=== PATIENT | female | born 1975 | race American Indian/Alaskan Native ===

== ENCOUNTER 2017-04-25 06:52 | Emergency (ER) | payer MEDICARE, MEDICAID ==
[2017-04-25 06:53] VITALS: BMI 74.9
[2017-04-25 07:06] VITALS: RESP 16
[2017-04-25 08:05] LABS: BASO # 0.1 K/uL (0.0-0.2); BASO % 0.9 % (0.0-2.0); EOS # 0.3 K/uL (0.0-0.7); EOS % 3.2 % (0.0-4.0); HEMATOCRIT 34.4 % (34.0-47.0); LYMPH # 1.6 K/uL (1.0-4.3); LYMPH % 16.8 % (20.0-40.0); MEAN CELL VOLUME 81.6 fL (81.0-99.0); MEAN CORPUSCULAR HEMOGLOBIN 26.6 pg (27.0-31.0); MEAN CORPUSCULAR HGB CONC 32.6 g/dL (33.0-37.0); MEAN PLATELET VOLUME 8.8 fL (7.2-11.7); MONO # 0.7 K/uL (0.0-0.8); MONO % 7.6 % (0.0-10.0); NRBC % 0.3 % (0.0-2.0); RED CELL DISTRIBUTION WIDTH 19.8 % (11.5-14.5); WHITE BLOOD COUNT 9.5 K/uL (4.8-10.8)
[2017-04-25 08:15] LABS: CHLORIDE 101 mmol/L (98-107); SODIUM 136 mmol/L (132-148)
[2017-04-25 08:17] LABS: AST/SGOT 29 U/L (14-36); BILIRUBIN,TOTAL 0.8 mg/dL (0.2-1.3); CARBON DIOXIDE 26 mmol/L (22-30); GFR AFRICAN-AMERICAN > 60
[2017-04-25 08:18] LABS: ALB/GLOB RATIO 0.9 (1.0-2.1); ALKALINE PHOSPHATASE 68 U/L (38-126); ALT/SGPT 27 U/L (9-52); BLOOD UREA NITROGEN 17 mg/dL (7-17); CALCIUM 9.8 mg/dl (8.6-10.4); GLUCOSE,RANDOM 106 mg/dL (65-105); TOTAL PROTEIN 8.5 g/dL (6.3-8.3)
[2017-04-25 08:19] LABS: POTASSIUM 5.4 mmol/L (3.6-5.2)
[2017-04-25] MEDS ORDERED: Silver Sulfadiazine 1% Cream (20 gm) TOP SCH (10:30)
[2017-04-25] MEDS ORDERED: Silver Sulfadiazine 1% Cream (20 gm) ONE (10:32)
--- NOTE | 2017-04-25 10:35 | C.PDOC ---
History Of Present Illness 41 year old female, with PMHx of edema and diabetes, presents to ED for evaluation of wound to right lower leg for the past week. Patient states that wound was initially smaller but has now increased in size. Notes being seen at [facility] ER for similar reason. Denies increased blood sugar level, but patient does not check her sugar daily. Notes living in a alf. Denies trauma, injury, fever, change in sensation, or increased swelling. Time Seen by Provider: 04/25/17 07:14 Chief Complaint (Nursing): Abnormal Skin Integrity History Per: Patient History/Exam Limitations: no limitations Onset/Duration Of Symptoms: Days (1 week) Current Symptoms Are (Timing): Still Present Location Of Injury: Right: Leg Quality Of Symptoms: Painful. denies: Draining Recent travel outside of the [place]: No Additional History Per: Patient Past Medical History Reviewed: Historical Data, Nursing Documentation, Vital Signs Vital Signs: Last Vital Signs Temp 98.9 F 04/25/17 11:04 Pulse 97 H 04/25/17 11:04 Resp 16 04/25/17 11:04 BP 138/79 04/25/17 11:04 Pulse Ox 97 04/25/17 12:26 - Medical History PMH: Diabetes, HTN, Hypercholesterolemia Family History: States: Diabetes - Social History Hx Alcohol Use: Yes Hx Substance Use: No Review Of Systems Except As Marked, All Systems Reviewed And Found Negative. Constitutional: Negative for: Fever, Chills Cardiovascular: Negative for: Chest Pain Respiratory: Negative for: Shortness of Breath Skin: Positive for: Other (wound to right lower leg) Neurological: Negative for: Weakness, Numbness Physical Exam - Physical Exam Appears: Non-toxic, No Acute Distress, Other (morbidly obese) Skin: Warm, Dry, Other (2 x 1cm area of ulceration to anterior right lower leg, no surrounding erythema or discharge) Head: Atraumatic, Normacephalic Eye(s): bilateral: Normal Inspection Nose: Normal Oral Mucosa: Moist Neck: Supple Chest: Symmetrical Cardiovascular: Rhythm Regular, No Murmur Respiratory: Normal Breath Sounds, No Rales, No Rhonchi, No Wheezing Gastrointestinal/Abdominal: Soft, No Tenderness Extremity: Normal ROM, Pedal Edema (bilateral legs), No Deformity Pulses: Left Dorsalis Pedis: Normal, Right Dorsalis Pedis: Normal Neurological/Psych: Oriented x3, Normal Speech, Normal Motor, Normal Sensation ED Course And Treatment - Laboratory Results Result Diagrams: 04/25/17 08:02 04/25/17 08:02 O2 Sat by Pulse Oximetry: 97 (RA) Pulse Ox Interpretation: Normal Progress Note: Spoke with podiatry resident who evaluated patient at bedside, preformed wound care, and instructed outpatient follow up. Patient is currently being managed by PMD and podiatry for chronic edema and wound care. Pt is being discharged home with instructions to follow up with medical billing and coding specialist in 1-2 days for further evaluation. Case discussed with Dr Pizano, agreed upon plan and discharge. Disposition - Disposition Disposition: HOME/ ROUTINE Disposition Time: 10:34 Condition: STABLE Additional Instructions: Follow up with your medical billing and coding specialist and PMD in 1-2 days. Return to ER if symptoms persist or worsen. Prescriptions: Silver [Silvasorb Antimicrobial Wound Gel] 1 applic TP BID 7 Days gel Instructions: Stasis Dermatitis (ED) Forms: [employer] (Israeli) - Clinical Impression Clinical Impression: Venous stasis ulcer - PA / COMPOUNDING TECHNICIAN / Resident Statement MD/DO has reviewed & agrees with the documentation as recorded. - Scribe Statement The provider has reviewed the documentation as recorded by the Jiaibgreg Valdez All medical record entries made by the Jiaibgreg were at my direction and personally dictated by me. I have reviewed the chart and agree that the record accurately reflects my personal performance of the history, physical exam, medical decision making, and the department course for this patient. I have also personally directed, reviewed, and agree with the discharge instructions and disposition.
[2017-04-25 11:06] VITALS: BP 138/79; PULSE 97; TEMP 98.9
[2017-04-25 11:21] VITALS: O2SAT 97
== END 2017-04-25 11:21 | disposition home or self-care (01) ==
LOC: C.ER 06:52
DX: I87.8 Other specified disorders of veins (principal); L97.819 Non-pressure chronic ulcer of other part of right lower leg with unspecified severity

== ENCOUNTER 2017-07-27 21:13 | Emergency (ER) | payer MEDICARE, MEDICAID ==
[2017-07-27 21:13] VITALS: BMI 74.9
--- NOTE | 2017-07-27 21:59 | C.PDOC ---
History Of Present Illness 41-year-old female, presents to the emergency department complaining of chronic lower extremity wound that she has had for about three months. Patient states it is painful and has not healed. She was seen by wound care nurse 06/19 at [facility], treated with medi-honey, but after that she was not told to follow-up anywhere and it is not getting better. Denies fever, drainage or any other associated symptoms. No other complaints at this time. Time Seen by Provider: 07/27/17 21:35 Chief Complaint (Nursing): Abnormal Skin Integrity History Per: Patient History/Exam Limitations: no limitations Onset/Duration Of Symptoms: Days Current Symptoms Are (Timing): Still Present Past Medical History Reviewed: Historical Data, Nursing Documentation, Vital Signs Vital Signs: Last Vital Signs Temp 98.7 F 07/27/17 21:22 Pulse 102 H 07/27/17 21:22 Resp 28 H 07/27/17 21:22 BP 136/95 H 07/27/17 21:22 Pulse Ox 97 07/27/17 21:22 - Medical History PMH: Anemia, Diabetes, HTN, Hypercholesterolemia Family History: States: Diabetes - Social History Hx Alcohol Use: No Hx Substance Use: No Review Of Systems Except As Marked, All Systems Reviewed And Found Negative. Constitutional: Negative for: Fever, Chills Respiratory: Negative for: Shortness of Breath Gastrointestinal: Negative for: Nausea, Vomiting Musculoskeletal: Positive for: Leg Pain Neurological: Negative for: Weakness, Numbness, Headache, Dizziness Physical Exam - Physical Exam Appears: Non-toxic, No Acute Distress Skin: Warm, Dry, No Rash Head: Atraumatic, Normacephalic Eye(s): bilateral: Normal Inspection, PERRL Nose: Normal Oral Mucosa: Moist Lips: Normal Appearing Neck: Normal ROM Cardiovascular: Rhythm Regular, No Murmur Respiratory: Normal Breath Sounds, No Accessory Muscle Use Extremity: Capillary Refill (<2 seconds), No Deformity, Other (right way: 3- 4cm shallow ulcerated wound. No erythema or discharge, surrounded by dry scaly skin.) Pulses: Left Dorsalis Pedis: Normal, Right Dorsalis Pedis: Normal Neurological/Psych: Oriented x3, Normal Speech ED Course And Treatment Progress Note: Accucheck is 93 Disposition Counseled Patient/Family Regarding: Studies Performed, Diagnosis, Need For Followup, Rx Given - Disposition [facility]errals: [facility] [Outside] [facility] [Outside] Disposition: HOME/ ROUTINE Disposition Time: 22:45 Condition: STABLE Additional Instructions: FOLLOW UP WITH [facility] USE MEDICATIONS DIRECTED RETURN TO ER IF SYMPTOMS WORSEN Prescriptions: Honey [Medihoney] 15 ml TP DAILY #1 paste..ml. traMADol [Ultram] 50 mg PO BID PRN #15 tab PRN Reason: pain Instructions: Chronic Wound Care (ED) Forms: [employer] (Serbian) Print Language: VIETNAMESE - POA Present On Arrival: None - Clinical Impression Clinical Impression: Chronic wound of extremity - Scribe Statement The provider has reviewed the documentation as recorded by the Scribe (Gerber Lance) All medical record entries made by the Scribe were at my direction and personally dictated by me. I have reviewed the chart and agree that the record accurately reflects my personal performance of the history, physical exam, medical decision making, and the department course for this patient. I have also personally directed, reviewed, and agree with the discharge instructions and disposition.
[2017-07-27 23:04] VITALS: BP 109/66; PULSE 97; RESP 20; TEMP 98.5; O2SAT 96
== END 2017-07-27 22:58 | disposition home or self-care (01) ==
LOC: C.ER 21:13
DX: L97.819 Non-pressure chronic ulcer of other part of right lower leg with unspecified severity (principal)

== ENCOUNTER 2018-10-14 19:59 | Emergency (ER) | payer MEDICARE, MEDICAID ==
[2018-10-14 19:59] VITALS: BMI 79.6
[2018-10-14 20:16] VITALS: TEMP 98.9
[2018-10-14 20:33] LABS: HCG,QUALITATIVE URINE NEGATIVE (NEGATIVE)
[2018-10-14 20:37] LABS: SQUAMOUS EPITHIAL 5 /hpf (0-5); URINE BACTERIA RARE (<OCC); URINE BILIRUBIN NEGATIVE (NEGATIVE); URINE BLOOD NEGATIVE (NEGATIVE); URINE CLARITY Hazy (Clear); URINE COLOR Yellow (YELLOW); URINE GLUCOSE (UA) NORMAL (Normal); URINE LEUKOCYTE ESTERASE 3+ Leu/uL (Negative); URINE PROTEIN NEGATIVE (NEGATIVE); URINE UROBILINOGEN NORMAL mg/dL (0.2-1.0)
--- NOTE | 2018-10-14 21:12 | C.PDOC ---
History Of Present Illness 42-year-old female presents to the ED after being sent from [facility] for medical clearance s/p possible bed bug exposure. As per [facility], bed bugs were discovered in the [facility]. Patient denies rash or any itchiness at this time. Time Seen by Provider: 10/14/18 20:21 Chief Complaint (Nursing): Medical Clearance History Per: Patient History/Exam Limitations: no limitations Onset/Duration Of Symptoms: Hrs Additional History Per: Patient Past Medical History Reviewed: Historical Data, Nursing Documentation, Vital Signs Vital Signs: Last Vital Signs Temp 98.9 F 10/14/18 20:10 Pulse 99 H 10/14/18 20:10 Resp 22 10/14/18 20:10 BP 153/99 H 10/14/18 20:10 Pulse Ox 95 10/14/18 20:10 - Medical History PMH: Anemia, Diabetes, HTN, Hypercholesterolemia Denies: Chronic Kidney Disease, Seizures, Sexually Transmitted Disease Surgical History: No Surg Hx - [facility] EXCISION OF R LOW LEG SUBCU/FASCIA, PERC APPROACH, DIAGN (09/10/18) EXTRACTION OF R LOW LEG SUBCU/FASCIA, PERC APPROACH (09/10/18) Family History: States: Diabetes - Social History Hx Alcohol Use: Yes Hx Substance Use: No Review Of Systems Skin: Positive for: Other (medical clearance s/p possible bed bug exposure ). Negative for: Rash Physical Exam - Physical Exam Appears: Non-toxic, No Acute Distress, Other (morbidly obese ) Skin: Warm, Dry, Rash (moderate, hyperpigmented, moist, scaly rash under bilateral breast regions that extends to upper abdomen), Other (no visible signs of insect bites. no rash consistent with bed bug bites ) Head: Atraumatic Eye(s): bilateral: Normal Inspection Chest: Other (moderately large breasts noted ) Neurological/Psych: Oriented x3, Normal Speech, Normal Cognition ED Course And Treatment - Laboratory Results Lab Results: Urine Color Yellow (YELLOW) 10/14/18 20: Urine Clarity Hazy (Clear) 10/14/18 20: Urine pH 5.0 (5.0-8.0) 10/14/18 20:27 Ur Specific [place] 1.026 (1.003-1.030) 10/14/18 20:27 Urine Protein Negative mg/dL (NEGATIVE) 10/14/18 20: Urine Glucose (UA) Normal mg/dL (Normal) 10/14/18 20: Urine Ketones Negative mg/dL (NEGATIVE) 10/14/18 20: Urine Blood Negative (NEGATIVE) 10/14/18 20: Urine Nitrate Negative (NEGATIVE) 10/14/18 20: Urine Bilirubin Negative (NEGATIVE) 10/14/18 20: Urine Urobilinogen Normal mg/dL (0.2-1.0) 10/14/18 20: Ur Leukocyte Esterase 3+ [place]/uL (Negative) H 10/14/18 20: Urine WBC (Auto) 8 /hpf (0-5) H 10/14/18: Urine RBC (Auto) 1 /hpf (0-3) 10/14/18: Ur Squamous Epith Cells 5 /hpf (0-5) 10/14/18 20: Urine Bacteria Rare (<OCC) 10/14/18 20: Urine HCG, Qual Negative (NEGATIVE) 10/14/18: Urine HCG, Qual Negative (NEGATIVE) 10/14/18 20: O2 Sat by Pulse Oximetry: 95 (on RA) Pulse Ox Interpretation: Normal Progress Note: Urinalysis ordered and reviewed. On reassessment, patient is resting comfortably, showing no signs of distress and is stable for discharge. Patient will be treated for a fungal rash. Good hygiene was discussed with patient and she is cleared for return to [facility]. She is advised to follow up with PMD/clinic for further evaluation. Disposition Counseled Patient/Family Regarding: Diagnosis, Need For Followup, Rx Given - Disposition Referrals: [facility] [Outside] Disposition: HOME/ ROUTINE Disposition Time: 21:08 Condition: STABLE Additional Instructions: Please follwo up with PMD or in clinic Use cream as directed for fungal rash under the breasts Return to ER if any concerns or new rash Pt is cleared to return to [facility] , NO EVIDENCE OF Rash consistent with Bedbugs at this time Prescriptions: Nystatin [Mycostatin Oint] 1 applic TP BID #120 g Forms: [facility] (Malawian), Work Excuse - Clinical Impression Clinical Impression: Medical assessment, Fungal rash of torso - PA / DIRECTOR OF PROGRAM MANAGEMENT / Resident Statement MD/DO has reviewed & agrees with the documentation as recorded. - Scribe Statement The provider has reviewed the documentation as recorded by the Scribe (Elis Valdez) All medical record entries made by the Scribe were at my direction and personally dictated by me. I have reviewed the chart and agree that the record accurately reflects my personal performance of the history, physical exam, medical decision making, and the department course for this patient. I have also personally directed, reviewed, and agree with the discharge instructions and disposition.
[2018-10-15 00:02] VITALS: BP 150/88; PULSE 84; RESP 20; O2SAT 98
== END 2018-10-15 00:03 | disposition home or self-care (01) ==
LOC: C.ER 19:59
DX: B36.9 Superficial mycosis, unspecified (principal)